=== PATIENT | male | born 1980 | race Caucasian/White ===

== ENCOUNTER → 2020-06-12 10:28 | Outpatient (BNVA) | payer BC, SELFPAY | PROVIDERS: Family Provider Nurse Practitioner Family; PCP Nurse Practitioner; Visit Provider Nurse Practitioner | DX: I10 Essential (primary) hypertension (principal); F41.9 Anxiety disorder, unspecified; K21.9 Gastro-esophageal reflux disease without esophagitis | CPT/HCPCS: 80053; 80061; 81000 ==

== ENCOUNTER → 2020-06-13 08:36 | Outpatient (BNVA) | payer BC, SELFPAY | PROVIDERS: Family Provider Nurse Practitioner Family; PCP Nurse Practitioner; Visit Provider Nurse Practitioner | DX: I10 Essential (primary) hypertension (principal); F41.9 Anxiety disorder, unspecified; K21.9 Gastro-esophageal reflux disease without esophagitis; Z11.59 Encounter for screening for other viral diseases | CPT/HCPCS: 86705; 86706; 86709; 86803; 87340 ==

== ENCOUNTER 2020-07-04 09:50 | Outpatient (CLI) | payer BC, SELFPAY ==
--- NOTE | 2020-07-04 10:15 | US_ITS ---
WS: [id number] ULTRASOUND ABDOMEN LIMITED CLINICAL INFORMATION: R74.8 - Abnormal levels of other serum enzymes COMPARISON: None. FINDINGS: Liver Size: Enlarged Craniocaudal length: 21.9 cm. Echogenicity: Dense Surface nodularity: None. Mass (size and location): None. Bile ducts Intrahepatic ducts: Normal. Common bile duct diameter: 0.5 cm. Gallbladder Normal. Gallstones: None. Gallbladder sludge: None. Gallbladder wall thickening: None. Pericholecystic fluid: None. Sonographic Crespo sign: Absent. Pancreas Normal as visualized. Right kidney: Normal. Hydronephrosis: None. Size: 10.5 cm x 5.8 cm x 5.7 cm. Abdominal aorta and IVC Visualized portions are normal. Ascites: None. US/US liver [id number] IMPRESSION: 1. Prominent hepatomegaly with diffuse fatty infiltration. Recommend correlati on with liver function tests. 2. Gallbladder and common bile duct are normal. 3. No hydronephrosis in right kidney.
== END 2020-07-04 09:51 | disposition home or self-care (01) ==
LOC: US 09:54
PROVIDERS: PCP Nurse Practitioner; Visit Provider Nurse Practitioner
DX: R74.8 Abnormal levels of other serum enzymes (principal); R16.0 Hepatomegaly, not elsewhere classified; K76.0 Fatty (change of) liver, not elsewhere classified
CPT/HCPCS: 76705

== ENCOUNTER → 2021-04-19 13:31 | Outpatient (BNVA) | payer OTHER, SELFPAY | PROVIDERS: PCP Nurse Practitioner; Visit Provider Nurse Practitioner Family | DX: F41.9 Anxiety disorder, unspecified (principal); I10 Essential (primary) hypertension; R53.83 Other fatigue; Z79.899 Other long term (current) drug therapy | CPT/HCPCS: 85025 ==

== ENCOUNTER → 2021-04-21 09:38 | Outpatient (BNVA) | payer OTHER, SELFPAY | PROVIDERS: PCP Nurse Practitioner; Visit Provider Nurse Practitioner Family | DX: R53.83 Other fatigue (principal); I10 Essential (primary) hypertension; F41.9 Anxiety disorder, unspecified; Z72.0 Tobacco use | CPT/HCPCS: 80053; 80061; 82043; 84443 ==

== ENCOUNTER 2021-12-21 18:40 | Emergency (ER) | payer BC, SELFPAY ==
[2021-12-21 18:42] VITALS: BP 156/98; PULSE 94; RESP 14; TEMP 36.6; O2SAT 99
--- NOTE | 2021-12-21 18:52 | CTR_ITS ---
PROCEDURE INFORMATION: Exam: CT Abdomen And Pelvis Without Contrast Exam date and time: 12/21/2021 7:21 PM Age: 41 years old Clinical indication: Abdominal pain; Localized; Left; Prior surgery; Surgery date: 6+ months; Surgery type: Appy; Additional info: L flank pain TECHNIQUE: Imaging protocol: Computed tomography of the abdomen and pelvis without contrast. Radiation optimization: All CT scans at this facility use at least one of these dose optimization techniques: automated exposure control; mA and/or kV adjustment per patient size (includes targeted exams where dose is matched to clinical indication); or iterative reconstruction. COMPARISON: [place] liver [id number] 07/04/2020 10:05 AM RADIATION DOSE METRICS: Total DLP (mGy-cm): 1901 FINDINGS: Lungs: Lung bases are clear. Liver: The liver is normal. Gallbladder and bile ducts: The gallbladder is decompressed, preventing meaningful evaluation of wall thickness. There is no intrahepatic or extrahepatic bile duct dilation. Pancreas: The pancreas is unremarkable. Spleen: The spleen is unremarkable. Adrenal glands: The adrenal glands are unremarkable. Kidneys and ureters: The kidneys are unremarkable. No hydronephrosis or stones. No ureteral dilation. Stomach and bowel: The stomach is unremarkable. The small bowel is nondilated. The colon is unremarkable. Appendix: The appendix is not visible. Intraperitoneal space: There is no free air or significant intraperitoneal free fluid. Vasculature: There is mild aortic atherosclerotic disease. Lymph nodes: There is no lymphadenopathy in the retroperitoneum, mesentery, pelvis or inguinal regions. Urinary bladder: The urinary bladder is unremarkable. Reproductive: The prostate and seminal vesicles are unremarkable. Bones/joints: There is mild degenerative disease in the lumbar spine. The pelvis and hips are unremarkable. Soft tissues: The abdominal wall is intact. CT/CT kidney stone [id number] IMPRESSION: 1. No acute findings. 2. Incidental findings above.
--- NOTE | 2021-12-21 18:53 | W.ED.ABDPA2 ---
HPI - Abdominal Pain General: Chief Complaint: Abdominal Pain Stated Complaint: L flank pain Time Seen by Provider: 12/21/21 18:46 Source: patient History of Present Illness: 41-year-old male with a history of hypertension. He presents with left flank and left upper quadrant pain radiating into his back that started this morning and is progressively gotten worse. He is nauseated when he stands up. He says he has a history of chronic diarrhea, but no change in his stool otherwise. No vomiting. No fever. No hematuria that he has noticed. He has a history of an appendectomy. MD elicited complaint: abdominal pain Pertinent past history: other Onset (ago): hour(s) Pain Consistency: constant Location: LUQ and L flank Quality: stabbing Radiation: back Migration to: no migration Exacerbating factors: nothing Relieving factors: nothing Associated Symptoms: Reports diarrhea (Chronic) and nausea; Denies change in bowel habits, chills, dysuria, fever(s), melena and vomiting Review of Systems Const: Denies: fever(s) or chills ENMT: Denies: throat pain Card: Denies: chest pain Resp: Denies: dyspnea, productive cough or non-productive cough GI: Reports: nausea and diarrhea (Chronic); Denies: vomiting, change in bowel habits or melena : Reports: flank pain; Denies: dysuria Musc: Reports: back pain Neuro: Denies: headache(s) PFSH ED PFSH: Medical History Current smoker Essential (primary) hypertension History of MRSA infection Surgical History History of appendectomy History of knee surgery Patella surgery bilateral knees Family History Grandfather Hypertension Cancer Brain Grandmother Hypertension Stroke Mother Hypertension Father Cancer Colon Denies family history of Diabetes Dementia Social History Smoking and tobacco status: never smoked Second hand smoke exposure: No Smoking risk assessment/counseling performed?: Yes Alcohol intake: current Alcohol intake frequency: holidays/special occasions only Desire information about alcohol rehabilitation?: No Counseling given: No Desire information about substance/drug rehabilitation?: No Counseling given: No Adopted: No Caregiver/support person: No Lives independently: Yes Household members: significant other Housing: House Marital status: Single Number of children: 0 service: No Current occupational status: employed Current occupation: strong transport History of recent travel: No Current gender identity: Male Physical Exam Const: GENERAL APPEARANCE: cooperative and well kempt; not frail appearing ORIENTATION/CONSCIOUSNESS: Yes awake HENMT: COMMON NORMALS: normocephalic, atraumatic and Normal external nose present HEAD & SCALP: normocephalic and atraumatic NOSE: Normal external nose present Eye: COMMON NORMALS: Equal, round and reactive pupils present and EOMs intact bilaterally PUPIL: Yes Equal, round and reactive pupils present Neck/C-Spine: GENERAL: Yes trachea midline Chest: CHEST: Yes Symmetrical chest wall rise Resp: COMMON NORMALS: normal respiratory effort, No use of accessory muscles and clear to auscultation bilaterally AUSCULTATION: clear to auscultation bilaterally Cardio: COMMON NORMALS: regular rate and regular rhythm RATE: regular rate RHYTHM: regular rhythm GI: COMMON NORMALS: Normal to inspection, nondistended, normoactive bowel sounds present PALPATION: Yes Tenderness to palpation present (GI) Details: LUQ : BLADDER/KIDNEY EXAM: Yes CVA tenderness on the left Back/Pelvis: GENERAL BACK: Yes CVA tenderness Neuro: ERASTO COMA SCALE: document [facility] findings [place] coma scale eye opening: Spontaneous Erasto coma scale verbal response: Orientated Erasto coma scale motor response: Obey commands Erasto coma scale total score: 15 Psych: COMMON NORMALS: mental status grossly normal APPEARANCE: Yes well kempt Course Vital Signs: Vital signs: Vital Signs Temperature 97.9 F 12/21/21 18:42 Pulse Rate 94 12/21/21 18:42 Respiratory Rate 18 12/21/21 22:07 Blood Pressure 156/98 12/21/21 18:42 Pulse Oximetry 99 12/21/21 18:42 MDM - Abdominal Pain Medical Decision Making White blood cell count of 7. BMP is normal. Liver enzymes are normal. His D-dimer is elevated at 1.36. Urinalysis is negative. Originally with left flank pain, CT of abdomen pelvis was performed for stone protocol, it is negative. Due to the flank nature of his pain with some mild shortness of breath symptoms, D-dimer was ordered, and was positive. CTA of the chest however is negative. He is improved symptomatically after medication and fluid here. He will be allowed home with symptom control. Lab Data : 12/21/21 19:35 12/21/21 19:35 Labs/Radiology: Radiology Impressions Abdomen/Pelvis CT 12/21/21 18:52 IMPRESSION: 1. No acute findings. 2. Incidental findings above. Chest CTA 12/21/21 23:15 IMPRESSION: No pulmonary embolism. Laboratory Results WBC 6.9 10^3/uL (4.0-10.0) 12/21/21 19:35 RBC 5.20 10^6/uL (4.1-5.3) 12/21/21 19:35 Hgb 16.4 g/dL (11.7-16.6) 12/21/21 19:35 Hct 46.1 % (42.0-52.0) 12/21/21 19:35 MCV 88.7 fl (80-94) 12/21/21 19:35 MCH 31.5 pg (28.0-34.0) 12/21/21 19:35 MCHC 35.6 g/dL (30.0-36.0) 12/21/21 19:35 RDW 13.4 % (12.1-15.1) 12/21/21 19:35 Plt Count 226 10^3/cmm (130-400) 12/21/21 19:35 MPV 10.0 fL (7.4-10.4) 12/21/21 19:35 Neut % (Auto) 70.0 % 12/21/21 19:35 Lymph % (Auto) 18.0 % 12/21/21 19:35 Deuel % (Auto) 10.3 % 12/21/21 19:35 Eos % (Auto) 0.7 % 12/21/21 19:35 Baso % (Auto) 0.7 % 12/21/21 19:35 Neut # (Auto) 4.83 10^3/uL (1.8-7.7) 12/21/21 19:35 Lymph # (Auto) 1.2 10^3/uL (0.8-4.8) 12/21/21 19:35 Deuel # (Auto) 0.7 10^3/uL (0.2-0.9) 12/21/21 19:35 Eos # (Auto) 0.1 10^3/uL (0.0-0.8) 12/21/21 19:35 Baso # (Auto) 0.1 10^3/uL (0.0-0.1) 12/21/21 19:35 Nucleated RBC % (auto) 0 % 12/21/21 19:35 Nucleated RBCs # 0.0 /100WBC 12/21/21 19:35 D-Dimer 1.36 ug/mIFEU (0-0.59) H 12/21/21 22:35 Sodium 134 mmol/L (136-145) L 12/21/21 19:35 Potassium 3.6 mmol/L (3.5-5.1) 12/21/21 19:35 Chloride 98 mmol/L (98-107) 12/21/21 19:35 Carbon Dioxide 22 mmol/L (22-29) 12/21/21 19:35 Anion Gap 17.6 (5-19) 12/21/21 19:35 BUN 11 mg/dL (6-20) 12/21/21 19:35 Creatinine 1.0 mg/dL (0.7-1.2) 12/21/21 19:35 GFR Calculation 82.3 mL/min (90-130) L 12/21/21 19:35 Glucose 96 mg/dL (65-115) 12/21/21 19:35 Calculated Osmolality 277 mOsm/kg (285-295) L 12/21/21 19:35 Calcium 9.1 mg/dL (8.5-10.5) 12/21/21 19:35 Total Bilirubin 0.2 mg/dL (0.15-1.2) 12/21/21 19:35 AST 27 U/L (0-40) 12/21/21 19:35 ALT 47 U/L (0-41) H 12/21/21 19:35 Alkaline Phosphatase 84 IU/L (40-130) 12/21/21 19:35 Creatine Kinase 96 U/L (39-308) 12/21/21 19:35 Troponin T Gen 5 ng/L 9 ng/L (0-15) 12/21/21 22:35 C-Reactive Protein 19.1 mg/L (0.0-4.9) H 12/21/21 19:35 Total Protein 7.0 g/dL (6.6-8.7) 12/21/21 19:35 Albumin 4.3 g/dL (3.5-5.2) 12/21/21 19:35 Globulin 2.7 g/dL (1.3-4.6) 12/21/21 19:35 Lipase 39 U/L (13-60) 12/21/21 19:35 Urine Color Yellow (Yellow) 12/21/21 21:44 Urine Appearance Clear (CLEAR) 12/21/21 21:44 Urine pH 5 (5-7) 12/21/21 21:44 Ur Specific [place] 1.020 (1.005-1.030) 12/21/21 21:44 Urine Protein Neg (Negative) 12/21/21 21:44 Urine Glucose (UA) Norm (Normal) 12/21/21 21:44 Urine Ketones Negative (Negative) 12/21/21 21:44 Urine Blood Neg (Negative) 12/21/21 21:44 Urine Nitrate Negative (Negative) 12/21/21 21:44 Urine Bilirubin Neg (Negative) 12/21/21 21:44 Urine Urobilinogen Norm mg/dL (Negative) 12/21/21 21:44 Ur Leukocyte Esterase Negative (Negative) 12/21/21 21:44 Discharge Plan Discharge Patient Disposition: Home Clinical Impression: Abdominal pain Condition: Stable Prescriptions: New ketorolac 10 mg tablet 10 mg PO TID PRN (Reason: pain) Qty: 10 0RF ondansetron 4 mg film 4 mg PO DAILY PRN (Reason: nausea and vomiting) Qty: 10 0RF No Action naproxen 500 mg tablet 500 mg PO BID PRN (Reason: pain) Qty: 30 0RF triamcinolone acetonide 0.1 % cream 1 applic topical BID Qty: 28.4 0RF famotidine [Pepcid] 20 mg tablet 20 mg PO BID Qty: 180 3RF hydroxyzine HCl 25 mg tablet 25 mg PO BID PRN (Reason: itching) Qty: 30 0RF telmisartan-hydrochlorothiazid 80-12.5 mg tablet 1 tab PO DAILY Qty: 90 3RF prednisone 20 mg tablet 60 mg PO DAILY 9 Days Qty: 18 0RF Rx Instructions: pt to take 60mg for days 1-3, then 40mg days 4-6, then 20mg 7-9 permethrin [Elimite] 5 % cream 1 applic topical Q14D Qty: 60 0RF Rx Instructions: apply second treatment 14 days after first treatment if live lice remain escitalopram oxalate [Lexapro] 10 mg tablet 10 mg PO DAILY Qty: 60 0RF Discharge Orders: Discharge ED (Routine); Ordered 12/22/21 Ordered By: Kushal Hernandez Referrals: Chely Campos, POLYSOMNOGRAPHY TECH-C [Primary Care Provider] - Patient Instructions: Abdominal Pain (ED) Activity Restrictions/Additional Instructions: Return for fever greater than 100, vomiting liquids or medications, blood in the stool, worsening pain despite treatment, other concerning symptoms. Coding Level of Care Code ED Casing Wringer Operator for Olimpia Fwd Exam Comprehensive
[2021-12-21 19:33] VITALS: RESP 18
[2021-12-21] MEDS: HYDROmorphone 1 mg/mL INJ 1 mL IVP ×2 (19:33→22:07)
[2021-12-21] MEDS: sodium chloride 0.9% 1,000 ML 999 ML IV (19:34)
[2021-12-21] MEDS: ondansetron 2 mg/ML SDV 2 mL 4 MG IVP (19:34)
[2021-12-21 19:44] LABS: Basophils # 0.1 10^3/uL (0.0-0.1); Basophils % 0.7 %; Eosinophils # 0.1 10^3/uL (0.0-0.8); Eosinophils % 0.7 %; Hematocrit 46.1 % (42.0-52.0); Hemoglobin 16.4 g/dL (11.7-16.6); Lymphocytes # 1.2 10^3/uL (0.8-4.8); Mean Corpuscular HGB Conc 35.6 g/dL (30.0-36.0); Mean Corpuscular Hemoglobin 31.5 pg (28.0-34.0); Mean Corpuscular Volume 88.7 fl (80-94); Monocytes # 0.7 10^3/uL (0.2-0.9); Monocytes % 10.3 %; Neutrophils # 4.83 10^3/uL (1.8-7.7); Nucleated Red Blood Cells % 0 %; Platelet Count 226 10^3/cmm (130-400); Red Cell Distribution Width 13.4 % (12.1-15.1); White Blood Count 6.9 10^3/uL (4.0-10.0)
[2021-12-21 20:01] LABS: Alanine Aminotransferase 47 U/L (0-41); Albumin Level 4.3 g/dL (3.5-5.2); Alkaline Phosphatase 84 IU/L (40-130); Anion Gap 17.6 (5-19); Aspartate Amino Transferase 27 U/L (0-40); Blood Urea Nitrogen 11 mg/dL (6-20); C Reactive Protein 19.1 mg/L (0.0-4.9); Calcium 9.1 mg/dL (8.5-10.5); Carbon Dioxide 22 mmol/L (22-29); Chloride 98 mmol/L (98-107); Globulin 2.7 g/dL (1.3-4.6); Glomerular Filtration Rate 82.3 mL/min (90-130); Glucose 96 mg/dL (65-115); Lipase 39 U/L (13-60); Osmolality Calculated 277 mOsm/kg (285-295); Potassium 3.6 mmol/L (3.5-5.1); Sodium 134 mmol/L (136-145); Total Bilirubin 0.2 mg/dL (0.15-1.2)
[2021-12-21 21:57] LABS: Add Urine Microscopic? NO; Charge for UA Resulting for Rev
[2021-12-21 22:00] LABS: Bilirubin Urine Neg (Negative); Blood Urine Neg (Negative); Glucose Urine UA Norm (Normal); Ketones Urine Negative (Negative); Leukocyte Esterase Urine Negative (Negative); Nitrate Urine Negative (Negative); Protein Urine Neg (Negative); Urine Appearance Clear (CLEAR); Urine Color Yellow (Yellow); Urobilinogen Urine Norm (Negative); pH Urine 5 (5-7)
[2021-12-21 22:07] VITALS: RESP 18
[2021-12-21] MEDS: ketorolac 30 mg/mL INJ 15 MG IVP (22:07)
[2021-12-21 22:46] LABS: Creatine Phosphokinase 96 U/L (39-308)
[2021-12-21 22:57] LABS: D Dimer 1.36 ug/mIFEU (0-0.59)
[2021-12-21 23:00] LABS: Troponin T (5th) Once 9 ng/L (0-15)
--- NOTE | 2021-12-21 23:15 | CTR_ITS ---
PROCEDURE INFORMATION: Exam: CTA Chest With Contrast Exam date and time: 12/21/2021 11:54 PM Age: 41 years old Clinical indication: Shortness of breath; Additional info: L flank pain, SOB TECHNIQUE: Imaging protocol: Computed tomographic angiography of the chest with contrast. 3D rendering (Not supervised by radiologist): MIP and/or 3D reconstructed images were created by the technologist. Radiation optimization: All CT scans at this facility use at least one of these dose optimization techniques: automated exposure control; mA and/or kV adjustment per patient size (includes targeted exams where dose is matched to clinical indication); or iterative reconstruction. Contrast material: OMNI 350; Contrast volume: 83 ml; Contrast route: INTRAVENOUS (IV); COMPARISON: CT kidney stone [id number] 12/21/2021 7:21 PM RADIATION DOSE METRICS: Total DLP (mGy-cm): 597.25 FINDINGS: Pulmonary arteries: The pulmonary arteries are adequately opacified for evaluation to the subsegmental level. There is no filling defect to suggest embolism. Aorta: The aorta is unremarkable. There is no aneurysm. Lungs: There is subsegmental atelectasis in the lung bases. There is no consolidation. Pleural spaces: There is no pleural effusion or pneumothorax. Heart: Heart size is normal. There is no pericardial effusion. There is mild coronary artery calcification. Lymph nodes: There is no mediastinal or hilar lymphadenopathy. There are calcified left hilar lymph nodes. Intraperitoneal space: Visible structures in the upper abdomen are unremarkable. Bones/joints: Bones are unremarkable. Soft tissues: The extrathoracic soft tissues are unremarkable. CT/CT angio chest PE protcl [id number] IMPRESSION: No pulmonary embolism.
[2021-12-22] MEDS: iohexol 350 mg/mL 100 mL Btl IV (00:03)
[2021-12-22 02:25] VITALS: BP 139/81; PULSE 72; RESP 16; TEMP 36.7; O2SAT 98
== END 2021-12-22 02:27 | disposition home or self-care (01) ==
PROVIDERS: Emergency Provider Emergency Medicine; PCP Nurse Practitioner
DX: R10.9 Unspecified abdominal pain (principal); I10 Essential (primary) hypertension
CPT/HCPCS: 71275; 74176; 80053; 81003; 82550; 83690; 84484; 85025; 85378; 86140; 96361; 96374; 96375; 96376; 99284; J1170; J1885; J2405; J7030; Q9967